=== PATIENT | female | born 1970 | race Caucasian/White ===

== ENCOUNTER 2017-09-06 03:00 | Emergency (ER) | payer SELFPAY ==
[~2017-09-06] VITALS: Ht 172.7 cm; Wt 83.7 kg
[2017-09-06] MEDS ORDERED: KETOROLAC 30 MG/1 ML IM ONE (03:30)
[2017-09-06] MEDS ORDERED: ONDANSETRON ODT 4 MG PO ONE (03:30)
[2017-09-06] MEDS ORDERED: ONDANSETRON ODT 4 MG ONE (03:46)
[2017-09-06] MEDS ORDERED: KETOROLAC 30 MG/1 ML ONE (03:46)
[2017-09-06 04:23] LABS: HEMATOCRIT 37.6 % (34.6-47.8); HEMOGLOBIN 12.9 g/dL (11.7-16.4); WHITE BLOOD COUNT 5.1 x10^3/uL (3.4-10)
[2017-09-06 04:37] LABS: BLOOD UREA NITROGEN 9 mg/dL (7-18)
[2017-09-06 05:03] LABS: RAPID INFLUENZA A POSITIVE (Negative); RAPID INFLUENZA B Negative (Negative)
[2017-09-06 05:26] VITALS: BP 114/60
== END 2017-09-06 05:29 | disposition home or self-care (01) ==
LOC: ED 05:25
DX: J10.1 Influenza due to other identified influenza virus with other respiratory manifestations (principal); I10 Essential (primary) hypertension; E78.00 Pure hypercholesterolemia, unspecified
CPT/HCPCS: 36415; 71020; 80048; 81001; 82040; 84703; 85025; 87086; 87147; 87400; 93005; 96372; 99285; J1885; Q0162